=== PATIENT | male | born 1990 | race Two or more races ===

== ENCOUNTER 2018-03-11 03:33 | Emergency (ER) | payer OTHER ==
[~2018-03-11] VITALS: Ht 167.6 cm; Wt 95.3 kg
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
[2018-03-11] MEDS ORDERED: TDAP DIPH,PERTUSS,TET VAC/PF 0.5 ML DISP.SYRIN IM ONE ×2 (03:45→03:51)
--- NOTE | 2018-03-11 03:48 | NUR ---
LAB AT PT BEDSIDE FOR BLOOD DRAW.
--- NOTE | 2018-03-11 04:03 | NUR ---
PT PROVIDED VERBAL CONSENT TO BLOOD TEST FOR HIV/HEP B/HEP C.
[2018-03-11 04:13] LABS: BASOPHILS # (AUTO) 0.1 K/uL (0.0-8.0); BASOPHILS % (AUTO) 0.5 % (0.0-2.0); EOSINOPHILS % (AUTO) 0.3 % (0.0-7.0); HEMATOCRIT 42.8 % (36.7-47.1); LYMPHOCYTES # (AUTO) 3.8 K/uL (20.0-40.0); LYMPHOCYTES % (AUTO) 29.9 % (20.5-51.5); MEAN CORPUSCULAR HEMOGLOBIN 30.9 uug (23.8-33.4); MEAN CORPUSCULAR HGB CONC 35 g/dL (32.5-36.3); MEAN CORPUSCULAR VOLUME 88.2 fL (73.0-96.2); MONOCYTES # (AUTO) 0.6 K/uL (2.0-10.0); MONOCYTES % (AUTO) 4.7 % (0.0-11.0); NEUTROPHILS # (AUTO) 8.2 K/uL (1.8-8.9); NEUTROPHILS % (AUTO) 64.6 % (38.5-71.5); PLATELET COUNT (AUTO) 351 K/uL (152-348); RED BLOOD CELL COUNT(AUTO) 4.86 MIL/uL (4.06-5.63); WHITE BLOOD COUNT (AUTO) 12.7 K/uL (3.6-10.2)
[2018-03-11 04:17] LABS: ALANINE AMINOTRANSFERASE 34 U/L (16-63); ALKALINE PHOSPHATASE 71 U/L (50-136); ASPARTATE AMINOTRANSFERASE 28 U/L (15-37); BILIRUBIN,DIRECT 0.1 mg/dL (0.0-0.2); BILIRUBIN,TOTAL 0.7 mg/dL (0.2-1.0); CARBON DIOXIDE 19 mmol/L (21-32); CHLORIDE 107 mmol/L (98-107); CREATININE 1.7 mg/dL (0.6-1.3); GLUCOSE 160 mg/dL (74-106); TOTAL PROTEIN, SERUM 7.6 g/dL (6.4-8.2); UREA NITROGEN, BLOOD 19 mg/dL (7-18)
[2018-03-11 04:21] LABS: POTASSIUM 2.8 mmol/L (3.5-5.1)
[2018-03-11 04:22] LABS: ETHANOL 240 MG/DL (0-0)
[2018-03-11 04:33] LABS: ACETAMINOPHEN < 2.0 ug/mL (10-30)
[2018-03-11] MEDS ORDERED: IV D5W-0.45% NS +20 KCL 1,000 ML IV ONE (04:53)
[2018-03-11] MEDS ORDERED: IV NORMAL SALINE 1000 ML BAG IV ONE (05:00)
[2018-03-11] MEDS ORDERED: POTASSIUM CHLORIDE 20 MEQ TAB.PRT.SR PO ONE (05:00)
[2018-03-11] MEDS ORDERED: POTASSIUM CHLORIDE 20 MEQ TAB.PRT.SR ONE (05:12)
--- NOTE | 2018-03-11 05:57 | NUR ---
ASSISTED PT W/ USE OF URINAL. 600ML URINE OUTPUT.
--- NOTE | 2018-03-11 06:10 | NUR ---
Patient discharged to police custody in stable conditon. Written and verbal after care instructions given. Patient verbalizes understanding of instructions. IV removed, w/ catheter intct. Pressure applied, no bleeding noted at site. No distress noted. Pt ambulated from ER accompanied by [employer] officers Baldomero #[id number] and Saúl #[id number].
[2018-03-11 06:14] VITALS: BP 118/81
[2018-03-11 06:17] LABS: *AMPHETAMINE, URINE NEGATIVE (NEGATIVE); *BARBITURATE, URINE NEGATIVE (NEGATIVE); *CANNABINOID, URINE NEGATIVE (NEGATIVE); *COCCAINE, URINE POSITIVE (NEGATIVE); *OPIATE, URINE NEGATIVE (NEGATIVE); *PHENCYCLIDINE SCREEN,URINE NEGATIVE (NEGATIVE)
[2018-03-12 17:06] LABS: HEPATITIS B SURFACE AG Negative (Negative)
== END 2018-03-11 06:17 ==
LOC: ER 03:39
DX: S60.512A Abrasion of left hand, initial encounter (principal); S60.511A Abrasion of right hand, initial encounter; R45.1 Restlessness and agitation; F17.200 Nicotine dependence, unspecified, uncomplicated; W22.01XA Walked into wall, initial encounter; Y93.89 Activity, other specified; Y92.89 Other specified places as the place of occurrence of the external cause; Y99.8 Other external cause status
CPT/HCPCS: 36415; 80048; 80076; 80307; 85025; 86704; 87340; 87806; 90471; 90715; 96365; 99284; 99406; A4663; C1758; G0480 ×2; G0481; J3490; J7030